=== PATIENT | female | born 1960 | race African-American/Black ===

== ENCOUNTER 2021-04-25 09:54 | Outpatient (CLI) | payer MEDICARE, MEDICAID, SELFPAY ==
[2021-04-25 10:18] LABS: Hematocrit 33.9 % (37.0-47.0); Hemoglobin 10.7 g/dL (12.0-15.0); Mean Corpuscular HGB Conc 31.6 g/dl (32-36); Mean Corpuscular Hemoglobin 28.5 pg (26-34); Mean Corpuscular Volume 90.4 fl (80-100); Mean Platelet Volume 9.3 fl (7.4-10.4); Platelet Count Result 299 k/mm3 (150-375); Red Blood Count 3.75 M/mm3 (4.2-5.4); Red Cell Distribution Width 14.3 % (11.5-14.5); White Blood Count 4.8 K/mm3 (4.5-10.0)
[2021-04-25 10:31] LABS: Anion Gap 10 mmol/L (8-16); Blood Urea Nitrogen 14 mg/dL (7-17); Calcium 9.5 mg/dL (8.4-10.2); Carbon Dioxide 28 mmol/L (22-30); Chloride 105 mmol/L (98-107); Estimated Glomerular Filt Rate 46; Glucose 97 mg/dL (65-110); Potassium 3.3 mmol/L (3.4-5.0); Sodium 143 mmol/L (137-145)
[2021-04-25 10:41] LABS: Creatinine Urine 108.4 mg/dL; Total Protein Urine Random 26 mg/dL; Ur Ttl Prot Creatinine Ratio 0.24 mg/mg (0-0.20)
[2021-04-25 10:42] LABS: Parathyroid Intact 183.4 pg/mL (7.5-53.5)
== END 2021-04-25 09:55 | disposition home or self-care (01) ==
PROVIDERS: PCP Internal Medicine; Visit Provider Internal Medicine Nephrology
DX: N18.32 Chronic kidney disease, stage 3b (principal)
CPT/HCPCS: 36415; 80069; 82570; 83970; 84156; 85027

== ENCOUNTER 2021-08-21 10:13 | Outpatient (CLI) | payer MEDICARE, MEDICAID, SELFPAY ==
[2021-08-21 10:36] LABS: Hematocrit 37.9 % (37.0-47.0); Hemoglobin 11.7 g/dL (12.0-15.0); Mean Corpuscular HGB Conc 30.9 g/dl (32-36); Mean Corpuscular Hemoglobin 27.5 pg (26-34); Mean Platelet Volume 9.9 fl (7.4-10.4); Platelet Count Result 317 k/mm3 (150-375); Red Blood Count 4.26 M/mm3 (4.2-5.4); White Blood Count 4.6 K/mm3 (4.5-10.0)
[2021-08-21 10:47] LABS: Anion Gap 7 mmol/L (8-16); Blood Urea Nitrogen 12 mg/dL (7-17); Calcium 9.4 mg/dL (8.4-10.2); Carbon Dioxide 31 mmol/L (22-30); Chloride 104 mmol/L (98-107); Estimated Glomerular Filt Rate 50; Glucose 86 mg/dL (65-110); Phosphorus 3.7 mg/dL (2.5-4.5); Potassium 3.8 mmol/L (3.4-5.0); Sodium 142 mmol/L (137-145)
[2021-08-21 11:59] LABS: Total Protein Urine Random 20 mg/dL; Ur Ttl Prot Creatinine Ratio 0.53 mg/mg (0-0.20)
== END 2021-08-21 10:14 | disposition home or self-care (01) ==
PROVIDERS: PCP Internal Medicine; Visit Provider Internal Medicine Nephrology
DX: N18.32 Chronic kidney disease, stage 3b (principal)
CPT/HCPCS: 36415; 80069; 82570; 83970; 84156; 85027

== ENCOUNTER 2022-02-26 13:44 | Outpatient (CLI) | payer MEDICARE, MEDICAID, SELFPAY ==
[2022-02-26 14:15] LABS: Hematocrit 39.3 % (37.0-47.0); Hemoglobin 12.6 g/dL (12.0-15.0); Mean Corpuscular HGB Conc 32.1 g/dl (32-36); Mean Corpuscular Hemoglobin 28.4 pg (26-34); Mean Corpuscular Volume 88.5 fl (80-100); Mean Platelet Volume 10.3 fl (7.4-10.4); Platelet Count Result 264 k/mm3 (150-375); Red Blood Count 4.44 M/mm3 (4.2-5.4); Red Cell Distribution Width 16.5 % (11.5-14.5); White Blood Count 3.9 K/mm3 (4.5-10.0)
[2022-02-26 14:26] LABS: Albumin Level 4.1 g/dL (3.5-5.1); Anion Gap 15 mmol/L (8-16); Blood Urea Nitrogen 20 mg/dL (7-17); Calcium 9.4 mg/dL (8.4-10.2); Carbon Dioxide 29 mmol/L (22-30); Chloride 100 mmol/L (98-107); Estimated Glomerular Filt Rate 50; Glucose 91 mg/dL (65-110); Phosphorus 3.5 mg/dL (2.5-4.5); Potassium 3.1 mmol/L (3.4-5.0); Sodium 144 mmol/L (137-145)
[2022-02-26 14:37] LABS: Parathyroid Intact 157.8 pg/mL (7.5-53.5)
[2022-02-26 15:02] LABS: Creatinine Urine 100.5 mg/dL; Total Protein Urine Random 16 mg/dL; Ur Ttl Prot Creatinine Ratio 0.16 mg/mg (0-0.20)
[2022-02-26 15:21] LABS: Vitamin D 25 Hydroxy 81.8 ng/mL
== END 2022-02-26 13:45 | disposition home or self-care (01) ==
PROVIDERS: PCP Internal Medicine; Visit Provider Internal Medicine Nephrology
DX: N18.31 Chronic kidney disease, stage 3a (principal); E21.1 Secondary hyperparathyroidism, not elsewhere classified
CPT/HCPCS: 36415; 80069; 82306; 82570; 83970; 84156; 85027

== ENCOUNTER 2022-07-27 14:31 | Emergency (ER) | payer MEDICARE, MEDICAID, SELFPAY ==
--- NOTE | ~2022-07-27 | XR_ITS ---
EXAM: XR foot RT min 3V DATE: 07/27/2022 15:01 HISTORY: Pain/Swelling OF 1ST TOE ANTERIOR SURFACE, NO INJURY . COMPARISON: None available. FINDINGS: Normal mineralization. No fracture or dislocation. No lytic or blastic lesion. Mild hallux valgus and moderate degenerative change at the first MTP joint. Degenerative midfoot changes. Perone al tendon enthesopathy and ossification. Plantar and Achilles enthesopathy. No erosion or periosteal change. Forefoot soft tissue swelling. IMPRESSION: No acute osseous finding in the right foot. Reviewed, dictated and finalized at location [facility].
[2022-07-27 14:43] VITALS: BP 135/67; PULSE 89; RESP 17; TEMP 36.6; O2SAT 99
--- NOTE | 2022-07-27 16:43 | ED.GENADULT ---
HPI - General Adult General Chief complaint: Extremity Injury, Lower Stated complaint: right foot/leg pain Time Seen by Provider: 07/27/22 15:03 History of Present Illness HPI narrative: 62-year-old female presented to the emergency department for evaluation of swelling of her right foot. Patient states she began having swelling and pain of the right foot on Friday. Patient denies any specific incident of injury. Patient states she has been elevating the foot and this has been helping. Patient does report pain at the base of the right great toe that does radiate across. Patient states this does not feel identical to her previous gout but does feel similar. Patient denies any fevers. Related Data Allergies Allergy/AdvReac Type Severity Reaction Status Date / Time No Known Allergies Allergy Verified 07/27/22 14:49 Review of Systems Review of Systems: All systems reviewed & are unremarkable except as noted in HPI and below Exam Narrative: APPEARANCE: Well appearing, no pain, no distress, well-nourished. HEAD: normocephalic, atraumatic. EYES: PERRLA/EOMI, conjunctivae clear. NOSE: Normal no drainage RESPIRATORY: Airway patent, respirations nonlabored. Clear to auscultation bilaterally, no rales, rhonchi, wheezing. CARDIOVASCULAR: Regular rate and rhythm without murmurs rubs or gallops. ABDOMINAL: Soft, nontender, nondistended, normal bowel sounds MUSCULOSKELETAL: Tenderness over the dorsum of the of the right foot with mild edema NEURO: Alert. Cranial nerves II through XII intact. SKIN: Warm, dry. Normal Color Course Course Emergency Course: 62 female with right foot pain. Patient has diffuse tenderness over the right foot. Underlying erythema is difficult to evaluate due to natural pigmentation. Patient states that she did have increased redness of the skin a few days ago but this has continued to improve. Differential diagnosis for patient's symptoms do include musculoskeletal injury, cellulitis, gout. Patient was treated with antibiotics for potential underlying bacterial infection. Patient was treated with a single dose of colchicine and patient was provided medications for pain control. X-ray was negative for acute fracture. Vital Signs Vital signs: Vital Signs Temperature 97.8 F 07/27/22 14:43 Pulse Rate 89 07/27/22 14:43 Respiratory Rate 17 07/27/22 14:43 Blood Pressure 135/67 07/27/22 14:43 Pulse Oximetry 99 07/27/22 14:43 Oxygen Delivery Room Air 07/27/22 14:43 Temperature 97.8 F 07/27/22 14:43 Pulse Rate 89 07/27/22 14:43 Respiratory Rate 17 07/27/22 14:43 Blood Pressure 135/67 07/27/22 14:43 Pulse Oximetry 99 07/27/22 14:43 Oxygen Delivery Room Air 07/27/22 14:43 Medical Decision Making Vital Signs Vital Signs: Vital Signs Temperature 97.8 F 07/27/22 14:43 Pulse Rate 89 07/27/22 14:43 Respiratory Rate 17 07/27/22 14:43 Blood Pressure 135/67 07/27/22 14:43 Pulse Oximetry 99 07/27/22 14:43 Oxygen Delivery Room Air 07/27/22 14:43 Temperature 97.8 F 07/27/22 14:43 Pulse Rate 89 07/27/22 14:43 Respiratory Rate 17 07/27/22 14:43 Blood Pressure 135/67 07/27/22 14:43 Pulse Oximetry 99 07/27/22 14:43 Oxygen Delivery Room Air 07/27/22 14:43 Discharge Plan Discharge Clinical Impression: Acute pain of right foot Patient Disposition: Home, Self-Care Condition: Stable Instructions: Antibiotic Form, Gout (ED) Additional Instructions: Antibiotic as directed until completed. Medications for pain control as needed. Use the walker for limited weightbearing on the right foot as needed. Have close follow-up with your primary care physician. If you have any worsening symptoms please call or return to the emergency department. Prescriptions: New cephalexin 500 mg capsule 500 mg PO Q12H 7 Days Qty: 14 0RF hydrocodone-acetaminophen 7.5-325 mg tablet 1 tablet PO Q12H PRN (Reason: pain) Qty:
[2022-07-27] MEDS: CEPHALEXIN 500 MG CAPSULE PO (16:49)
[2022-07-27] MEDS: COLCHICINE 0.6 MG TABLET 1.2 MG PO (16:49)
[2022-07-27] MEDS: HYDROcodone/acetaminophen (*CRX) 5-325 MG TABLET 1 TAB PO (16:49)
[2022-07-27] MEDS: COLCHICINE 0.6 MG TABLET PO (16:57)
== END 2022-07-27 17:07 | disposition home or self-care (01) ==
PROVIDERS: Emergency Provider Emergency Medicine; PCP Internal Medicine
DX: M79.671 Pain in right foot (principal)
CPT/HCPCS: 73630; 99283; A9270

== ENCOUNTER 2022-08-23 14:21 | Outpatient (CLI) | payer MEDICARE, MEDICAID, SELFPAY ==
[2022-08-23 15:03] LABS: Creatinine Urine 80.2 mg/dL; Total Protein Urine Random 46 mg/dL; Ur Ttl Prot Creatinine Ratio 0.57 mg/mg (0-0.20)
[2022-08-23 15:08] LABS: Albumin Level 4.4 g/dL (3.5-5.1); Anion Gap 7 mmol/L (8-16); Blood Urea Nitrogen 21 mg/dL (7-17); Calcium 10.1 mg/dL (8.4-10.2); Carbon Dioxide 32 mmol/L (22-30); Chloride 103 mmol/L (98-107); Estimated Glomerular Filt Rate 42; Glucose 107 mg/dL (65-110); Phosphorus 3.7 mg/dL (2.5-4.5); Potassium 3.3 mmol/L (3.4-5.0); Sodium 142 mmol/L (137-145)
== END 2022-08-23 14:22 | disposition home or self-care (01) ==
PROVIDERS: PCP Internal Medicine; Visit Provider Internal Medicine Nephrology
DX: N18.31 Chronic kidney disease, stage 3a (principal)
CPT/HCPCS: 36415; 80069; 82570; 84156

== ENCOUNTER 2022-12-21 13:09 | Emergency (ER) | payer MEDICARE, SELFPAY ==
[2022-12-21] VITALS (10 sets, daily range): BP systolic 101–123; BP diastolic 60–81; PULSE 73–97; RESP 18–34; TEMP 36.7; O2SAT 95–100
--- NOTE | ~2022-12-21 | XR_ITS ---
EXAMINATION: XR chest 2V DATE: 12/21/2022 13:55 INDICATION: Shortness of breath TECHNIQUE: PA and lateral views of the chest are obtained. COMPARISON: 09/06/2016 FINDINGS: The lungs are free of acute opacities. No pleural effusion or pneumothorax. The cardiomedia stinal silhouette is normal. There are bridging osteophytes at multiple levels in the spine, consiste nt with diffuse idiopathic skeletal hyperostosis (DISH). There are changes of partial left mastectomy and left axillary lymph node dissection. A dual-lead cardiac pacemaker of the right chest wall ends with leads in expected locations. IMPRESSION: 1. No acute cardiopulmonary abnormality. Reviewed, dictated and finalized at location A.
--- NOTE | 2022-12-21 13:20 | ECG_ITS ---
Measurements Intervals [place] Rate: 77 P: [place]: 0 QRS: -79 QRSD: 92 T: 124 QT: 361 QTc: 409 Interpretive Statements ECTOPIC ATRIAL RHYTHM ATRIAL PREMATURE COMPLEX LOW QRS VOLTAGE IN PRECORDIAL LEADS LEFT ANTERIOR FASCICULAR BLOCK ANTEROSEPTAL INFARCT, AGE INDETERMINATE BORDERLINE ST-T WAVE ABNORMALITY- HIGH LATERAL LEADS BASELINE ARTIFACT- I, III, AVR, AVL, AVF, V2, V4 ABNORMAL ECG NO PREVIOUS ECG AVAILABLE FOR COMPARISON Electronically Signed On 12-21-2022 15:57:09 CDT by Johan Nolen D.O.
[2022-12-21 13:31] LABS: Basophils Percent Auto 0.6 % (0.2-1.2); Eosinophils Absolute Auto 0.1 K/mm3 (0-0.3); Eosinophils Percent Auto 1.9 % (0-4.4); Hematocrit 38.4 % (37.0-47.0); Hemoglobin 12.5 g/dL (12.0-15.0); Immature Granulocyte Absolute 0.01 K/mm3 (0.00-0.031); Immature Granulocyte Percent A 0.2 % (0-0.5); Lymphocytes Absolute Auto 1.55 K/mm3 (0.9-3.2); Lymphocytes Percent Auto 32.1 % (18.3-44.2); Mean Corpuscular HGB Conc 32.6 g/dl (32-36); Mean Corpuscular Hemoglobin 29.6 pg (26-34); Mean Corpuscular Volume 90.8 fl (80-100); Mean Platelet Volume 10.6 fl (7.4-10.4); Monocytes Absolute Auto 0.7 K/mm3 (0.1-0.6); Monocytes Percent Auto 14.1 % (2.6-8.5); Neutrophils Absolute Auto 2.5 K/mm3 (1.3-6.7); Neutrophils Percent Auto 51.1 % (45.5-73.1); Platelet Count Result 246 k/mm3 (150-375); Red Blood Count 4.23 M/mm3 (4.2-5.4); Red Cell Distribution Width 15.9 % (11.5-14.5); White Blood Count 4.8 K/mm3 (4.5-10.0)
[2022-12-21 13:41] LABS: Alanine Aminotransferase 32 U/L (6-35); Albumin Level 4.2 g/dL (3.5-5.1); Alkaline Phosphatase 106 U/L (38-126); Anion Gap 14 mmol/L (8-16); Aspartate Amino Transferase 50 U/L (14-36); Bilirubin,Total 1.7 mg/dL (0.2-1.3); Blood Urea Nitrogen 33 mg/dL (7-17); Calcium 10.1 mg/dL (8.4-10.2); Carbon Dioxide 25 mmol/L (22-30); Chloride 103 mmol/L (98-107); Estimated CRCL calculation 21 ml/min; Estimated Glomerular Filt Rate 26; Glucose 111 mg/dL (65-110); Potassium 3.3 mmol/L (3.4-5.0); Sodium 142 mmol/L (137-145)
[2022-12-21 16:05] LABS: NT Pro B Type Natriuretic Pept 3540 pg/mL (19.9-100)
--- NOTE | 2022-12-21 16:09 | ED.SOB ---
HPI - SOB/Dyspnea General Chief Complaint: Shortness of Breath/Dyspnea Stated Complaint: SHORTNESS OF BREATH Time Seen by Provider: 12/21/22 14:50 History of Present Illness HPI Narrative: Patient is a 62-year-old female who presents ER with shortness of breath. Reports ongoing over the last week. Exertional. No chest pain or chest pressure. Has history of CHF. Denies orthopnea or new edema. Reports compliance with her home medications. She reports that she takes 80 mg of Lasix daily. 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 No runny nose or sore throat or productive cough. Related Data Home Medications Medication Instructions Recorded Confirmed potassium chloride 10 mEq 10 meq PO DAILY 09/17/22 09/17/22 tablet,extended release (Klor-Con) Allergies Allergy/AdvReac Type Severity Reaction Status Date / Time No Known Allergies Allergy Verified 12/21/22 14:33 Review of Systems Review of Systems: All systems reviewed & are unremarkable except as noted in HPI and below Constitutional: Constitutional: Denies chills and Denies fever(s) ENT: Reports system reviewed and no additional complaints, except as documented Cardiovascular: Cardiovascular: Denies chest pain, Denies rapid heart rate and Denies radiating jaw, neck or arm pain Respiratory: Respiratory: Denies cough, Reports dyspnea and Denies wheezing Gastrointestinal: Gastrointestinal: Reports no additional gastrointestinal complaints Genitourinary: Genitourinary: Reports no additional female genitourinary complaints [facility] Past Medical History Medical History (Updated 12/21/22 @ 16:38 by Shen Goodwin MD) Asthma Chronic kidney disease, stage 3a History of hypertension Pulmonary HTN Secondary hyperparathyroidism, not elsewhere classified Surgical History Surgical History (Updated 12/21/22 @ 16:27 by Shen Goodwin MD) History of cardiac defibrillator placement Social History Social History (Updated 09/17/22 @ 11:45 by Nikia Johnston MA) Smoking status: Former smoker Alcohol intake: unknown Substance use: unknown Lack of Transportation: No Lack of Food: Sometimes True Current Housing: I Have Housing Concerned About Future Housing: No Difficulty Paying Gas/Electric Bills: No Difficulty Paying for Meds: No Currently Unemployed: No Education: Associate Degree Difficulty w/ Childcare or Family Care: No Living arrangements: with family Gender identity (if verbalized by the patient): Female Exam Narrative: GENERAL: Well-appearing, well-nourished, and in no acute distress. HEAD: Normocephalic, atraumatic. ENT: Mucous membranes moist. NECK: Supple. CHEST: Clear to auscultation. No respiratory distress. HEART: Regular rate and rhythm. Normal peripheral pulses. ABDOMEN: Soft, nontender, nondistended, normal active bowel sounds. EXTREMITIES: Normal range of motion. No edema. SKIN: Warm, dry, no rash. NEURO: Alert and oriented x3. PSYCH: Normal mood and affect. Course Vital Signs Vital signs: Vital Signs Temperature 98.1 F 12/21/22 13:17 Pulse Rate 97 12/21/22 13:17 Respiratory Rate 20 12/21/22 13:17 Blood Pressure 123/75 12/21/22 13:17 Pulse Oximetry 100 12/21/22 13:17 Oxygen Delivery Room Air 12/21/22 13:17 Temperature 98.1 F 12/21/22 13:17 Pulse Rate 81 12/21/22 16:00 Respiratory Rate 18 12/21/22 16:00 Blood Pressure 118/72 12/21/22 16:00 Pulse Oximetry 100 12/21/22 16:00 Oxygen Delivery Room Air 12/21/22 14:36 MDM - SOB/Dyspnea MDM Narrative Medical decision making narrative: -Presentation: 62-year-old female presenting ER with shortness of breath. -DDX includes but is not limited to: CHF exacerbation, pneumonia, viral syndrome -Co-morbidities complicating care: CKD, pulmonary hypertension -Social determinants of health: None -External Chart Review: -Hx from independent Sources: Patient -Independent interpretation of guille
== END 2022-12-21 17:02 | disposition home or self-care (01) ==
PROVIDERS: Emergency Provider Emergency Medicine; PCP Internal Medicine
DX: I13.0 Hypertensive heart and chronic kidney disease with heart failure and stage 1 through stage 4 chronic kidney disease, or unspecified chronic kidney disease (principal); N18.30 Chronic kidney disease, stage 3 unspecified; I50.9 Heart failure, unspecified; I27.20 Pulmonary hypertension, unspecified; J45.909 Unspecified asthma, uncomplicated; N25.81 Secondary hyperparathyroidism of renal origin; Z95.810 Presence of automatic (implantable) cardiac defibrillator; Z87.891 Personal history of nicotine dependence; I49.1 Atrial premature depolarization; I44.4 Left anterior fascicular block; R94.31 Abnormal electrocardiogram [ECG] [EKG]
CPT/HCPCS: 36415; 71046; 80053; 83880; 85025; 93005; 99284

== ENCOUNTER 2022-12-27 13:07 | Outpatient (CLI) | payer MEDICARE, SELFPAY ==
[2022-12-27 14:05] LABS: Hematocrit 37.1 % (37.0-47.0); Hemoglobin 12.1 g/dL (12.0-15.0); Mean Corpuscular HGB Conc 32.6 g/dl (32-36); Mean Corpuscular Hemoglobin 29.7 pg (26-34); Mean Corpuscular Volume 90.9 fl (80-100); Mean Platelet Volume 11.5 fl (7.4-10.4); Platelet Count Result 248 k/mm3 (150-375); Red Blood Count 4.08 M/mm3 (4.2-5.4); Red Cell Distribution Width 16.2 % (11.5-14.5); White Blood Count 5.1 K/mm3 (4.5-10.0)
[2022-12-27 14:16] LABS: Anion Gap 14 mmol/L (8-16); Blood Urea Nitrogen 37 mg/dL (7-17); Calcium 9.9 mg/dL (8.4-10.2); Carbon Dioxide 25 mmol/L (22-30); Chloride 103 mmol/L (98-107); Estimated Glomerular Filt Rate 24; Glucose 94 mg/dL (65-110); Phosphorus 3.5 mg/dL (2.5-4.5); Sodium 142 mmol/L (137-145)
[2022-12-27 14:20] LABS: Creatinine Urine 236.6 mg/dL; Total Protein Urine Random 82 mg/dL; Ur Ttl Prot Creatinine Ratio 0.35 mg/mg (0-0.20)
[2022-12-27 14:28] LABS: Parathyroid Intact 188.3 pg/mL (7.5-53.5)
== END 2022-12-27 13:08 | disposition home or self-care (01) ==
LOC: ANHLAB 13:09
PROVIDERS: PCP Internal Medicine; Visit Provider Internal Medicine Nephrology
DX: N18.31 Chronic kidney disease, stage 3a (principal); E21.1 Secondary hyperparathyroidism, not elsewhere classified
CPT/HCPCS: 36415; 80069; 82306; 82570; 83970; 84156; 85027

== ENCOUNTER 2023-01-06 14:45 | Outpatient (CLI) | payer MEDICARE, SELFPAY ==
[2023-01-06 16:06] LABS: Hematocrit 37.1 % (37.0-47.0); Mean Corpuscular HGB Conc 32.3 g/dl (32-36); Mean Corpuscular Hemoglobin 29.7 pg (26-34); Mean Corpuscular Volume 91.8 fl (80-100); Mean Platelet Volume 10.6 fl (7.4-10.4); Platelet Count Result 187 k/mm3 (150-375); Red Blood Count 4.04 M/mm3 (4.2-5.4); Red Cell Distribution Width 17.1 % (11.5-14.5); White Blood Count 4.6 K/mm3 (4.5-10.0)
[2023-01-06 16:55] LABS: Creatinine Urine 259.5 mg/dL; Total Protein Urine Random 87 mg/dL; Ur Ttl Prot Creatinine Ratio 0.34 mg/mg (0-0.20)
[2023-01-06 17:04] LABS: Sodium Urine Random 6 meq/L
[2023-01-06 17:38] LABS: Alanine Aminotransferase 43 U/L (6-35); Albumin Level 4.4 g/dL (3.5-5.1); Alkaline Phosphatase 122 U/L (38-126); Anion Gap 15 mmol/L (8-16); Aspartate Amino Transferase 51 U/L (14-36); Bilirubin,Total 2.4 mg/dL (0.2-1.3); Blood Urea Nitrogen 26 mg/dL (7-17); CRP < 0.5 mg/dL (<1.0); Calcium 10.3 mg/dL (8.4-10.2); Carbon Dioxide 21 mmol/L (22-30); Chloride 105 mmol/L (98-107); Creatine Kinase 162 U/L (30-135); Estimated Glomerular Filt Rate 42; Glucose 91 mg/dL (65-110); Lactate Dehydrogenase 325 U/L (120-246); Phosphorus 3.5 mg/dL (2.5-4.5); Potassium 4.2 mmol/L (3.4-5.0); Sodium 141 mmol/L (137-145)
[2023-01-06 17:49] LABS: Complement C3 93 mg/dL (88-165)
[2023-01-06 18:55] LABS: Erythrocyte Sedimentation Rate 14 mm/hr (0-20)
[2023-01-12 05:27] LABS: Haptoglobin 68 mg/dL (43-212)
[2023-01-14 10:48] LABS: Complement Total CH50 >60 U/mL (31-60)
== END 2023-01-06 14:46 | disposition home or self-care (01) ==
PROVIDERS: PCP Internal Medicine; Visit Provider Internal Medicine Nephrology
DX: N18.31 Chronic kidney disease, stage 3a (principal); R74.8 Abnormal levels of other serum enzymes
CPT/HCPCS: 36415; 80069; 80076; 82550; 82570; 83010; 83615; 84156; 84300; 85027; 85652; 86140; 86160; 86162; 86225

== ENCOUNTER 2023-01-09 12:03 | Outpatient (CLI) | payer MEDICARE, SELFPAY ==
--- NOTE | ~2023-01-09 | US_ITS ---
Renal-Bladder ultrasound Clinical History: Chronic kidney disease Technique: Real-time sonographic imaging of the kidneys and urinary bladder was performed. Findings: The right kidney measures 9.9 cm in length and the left kidney measures 8.8 cm. There is no hydronephrosis or renal calculus identified. Renal cortical echogenicity is within normal limits. No renal mass lesion is identified. Urinary bladder is probably minimally distended with apparent free fluid. Questionable bowel loops ve rsus possible mass in the abdomen. Impression: Unremarkable kidneys. Probable minimally distended urinary bladder with free fluid and bowel loops versus mass in the abdom en. Consider CT of the abdomen and pelvis to further assess, as sonographic imaging is somewhat indet erminate in this case. Reviewed, dictated and finalized at [facility]. Impression: Unremarkable kidneys. Probable minimally distended urinary bladder with free fluid and bowel loops ve rsus mass in the abdomen. Consider CT of the abdomen and pelvis to further asse ss, as sonographic imaging is somewhat indeterminate in this case.
[2023-01-09 13:25] LABS: HAV RESULT Negative (Negative); Hepatitis B Surface Antigen Negative (Negative)
[2023-01-09 13:35] LABS: Hepatitis C Virus Antibody Negative (Negative)
[2023-01-09 21:45] LABS: Hepatitis B Core IgM Result Negative (Negative)
== END 2023-01-09 12:04 | disposition home or self-care (01) ==
PROVIDERS: PCP Internal Medicine; Visit Provider Internal Medicine Nephrology
DX: R74.8 Abnormal levels of other serum enzymes (principal); N18.31 Chronic kidney disease, stage 3a
CPT/HCPCS: 36415; 76775; 80074